=== PATIENT | male | born 1985 | race Caucasian/White ===

== ENCOUNTER 2021-11-20 22:04 | Emergency (ER) | payer SELFPAY ==
[2021-11-20] MEDS ORDERED: Sodium Chloride 0.9% 2.5 ML Syringe FLUSH PRN (22:28)
[2021-11-20] MEDS ORDERED: Sodium Chloride 0.9% 10 ML Syringe FLUSH PRN (22:28)
[2021-11-20] MEDS ORDERED: Sodium Chloride 0.9% 1,000 ML IV ONE (22:28)
[2021-11-20] MEDS ORDERED: Ondansetron 4 MG/2 ML SDV IVPUSH ONE (22:28)
[2021-11-20] MEDS ORDERED: Acetaminophen 325 MG Tab PO ONE (23:00)
[2021-11-20] MEDS ORDERED: Ketorolac 30 MG/ML SDV IVPUSH ONE (23:00)
[2021-11-20 23:14] LABS: BLOOD UREA NITROGEN,BUN 24 mg/dL (7.0-18.0); CARBON DIOXIDE,CO2 24.1 mmol/L (21.0-32.0); CHLORIDE,CL 106 mmol/L (98-107); GLUCOSE RANDOM 151 mg/dL (74-106); LIPASE 49 U/L (73-393); POTASSIUM,K 4.2 mmol/L (3.5-5.1); SODIUM,NA 140 mmol/L (136-148)
== END 2021-11-21 00:02 | disposition home or self-care (01) ==
LOC: MW.ED 22:04
DX: R11.2 Nausea with vomiting, unspecified (principal); B34.9 Viral infection, unspecified; E86.0 Dehydration
CPT/HCPCS: 80053; 81003; 83690; 83735; 85025; 96374; 96375; 99284; A9270; J1885; J2405; J7030; 99283; J3490

== ENCOUNTER 2022-07-18 11:32 | Emergency (ER) | payer SELFPAY ==
[2022-07-18] MEDS ORDERED: Ondansetron 4 MG/2 ML SDV IVPUSH ONE (11:39)
[2022-07-18] MEDS ORDERED: Sodium Chloride 0.9% 2.5 ML Syringe FLUSH PRN (11:39)
[2022-07-18] MEDS ORDERED: Sodium Chloride 0.9% 10 ML Syringe FLUSH PRN (11:39)
[2022-07-18] MEDS ORDERED: LORazepam 2 MG/ML SDV IVPUSH ONE (11:39)
[2022-07-18] MEDS ORDERED: Sodium Chloride 0.9% 1,000 ML IV ONE (11:39)
[2022-07-18 12:23] LABS: ACETAMINOPHEN <2.0 ug/mL; BLOOD UREA NITROGEN,BUN 16 mg/dL (7.0-18.0); CARBON DIOXIDE,CO2 26.8 mmol/L (21.0-32.0); CHLORIDE,CL 99 mmol/L (98-107); GLUCOSE RANDOM 97 mg/dL (74-106); POTASSIUM,K 3.5 mmol/L (3.5-5.1); SODIUM,NA 139 mmol/L (136-148)
[2022-07-18 12:24] LABS: ESTIMATED GFR 114 mL/min (>60)
== END 2022-07-18 13:41 | disposition home or self-care (01) ==
LOC: MW.ED 11:32
DX: F15.10 Other stimulant abuse, uncomplicated (principal); R00.0 Tachycardia, unspecified
CPT/HCPCS: 36415; 71045; 80053; 80143; 80179; 80305; 80307; 81001; 83735; 85025; 93005; 96361; 96374; 96375; 99284; J2060; J2405; J3490; J7030

== ENCOUNTER 2022-08-04 19:54 | Emergency (ER) | payer BC | END 2022-08-04 23:20 | disposition home or self-care (01) | LOC: MW.ED 19:54 | DX: K64.4 Residual hemorrhoidal skin tags (principal) | CPT/HCPCS: 71045; 71045-26; 74018; 74018-26; 99283 ==

== ENCOUNTER 2022-12-14 17:24 | Emergency (ER) | payer SELFPAY ==
[2022-12-14] MEDS ORDERED: LORazepam 2 MG/ML SDV IVPUSH ONE (17:26)
[2022-12-14] MEDS ORDERED: Sodium Chloride 0.9% 1,000 ML IV ONE ×2 (17:26→18:27)
[2022-12-14] MEDS ORDERED: Ondansetron 4 MG/2 ML SDV IVPUSH ONE (17:26)
[2022-12-14 18:29] LABS: BLOOD UREA NITROGEN,BUN 20 mg/dL (7.0-18.0); CARBON DIOXIDE,CO2 24.1 mmol/L (21.0-32.0); CHLORIDE,CL 104 mmol/L (98-107); GLUCOSE RANDOM 122 mg/dL (74-106); POTASSIUM,K 3.6 mmol/L (3.5-5.1); SODIUM,NA 142 mmol/L (136-148)
[2022-12-14 18:34] LABS: ESTIMATED GFR 114 mL/min (>60)
== END 2022-12-14 20:41 | disposition home or self-care (01) ==
LOC: MW.ED 17:24
DX: F19.10 Other psychoactive substance abuse, uncomplicated (principal)
CPT/HCPCS: 36415; 80053; 80305; 80307; 81001; 85025; 93005; 96361; 96374; 96375; 99284; J2060; J2405; J7030; 93010